=== PATIENT | female | born 1970 | race Caucasian/White ===

== ENCOUNTER 2019-09-07 04:03 | Emergency (ER) | payer BC, OTHER ==
[2019-09-07] MEDS: Pantoprazole IV* 40 MG IV ONE (04:31)
[2019-09-07] MEDS: NS 0.9% 1000 ML** 1,000 ML IV ONE (04:31)
[2019-09-07] MEDS: Ondansetron INJ* 2 MG/ML VIAL IV ONE ×2 (04:31→05:22)
[2019-09-07 04:45] LABS: ABS Lymphocytes 0.6 10^3/ul (1.0-4.8); ABS Monocytes 0.4 10^3/ul (0-0.8); Hematocrit 42 % (35-47); Hemoglobin 14.7 g/dL (12.0-16.0); Lymphocyte % 10.8 %; Mean Corpuscular HGB Conc 35 g/dL (31-36); Mean Corpuscular Hemoglobin 35 pg (27-31); Mean Corpuscular Volume 99 fL (80-97); Mean Platelet Volume 7.3 fL (7.4-10.4); Nucleated Red Blood Cells % 0.1; Platelet Count 301 10^3/uL (150-450); Red Blood Count 4.23 10^6 /uL (3.70-4.87); Red Cell Distribution Width 14 % (10-15)
--- NOTE | 2019-09-07 04:49 | ED ---
Abdominal Pain/Female - HPI Summary HPI Summary: Patient is a 48 y/o F w/ Hx of gastric bypass who presents to [facility] with complaints of abdominal pain and N/V. She states that she had flown in to [place] from [place] 09/06/19. Patient notes that she ate a [employer] DonX-1 croissant before boarding the airplane. Abdominal pain and N/V subsequently onset. Abdominal pain is characterized as constant and sharp. No radiation of pain noted. Pain has been progressively worsening since onset and is rated 10/ 10 in room. Patient notes that she has not slept secondary to pain. Vomiting is described as continuous since onset. Diaphoresis is endorsed as well. Patient states that she has not been able to keep food down but has been able to take some sips of water. She is unsure of fever. Diarrhea is denied. No similar episodes of Sx noted. Patient states that she tried to take a TUMS for her Sx but vomited this up. No abdominal surgeries with exception of gastric bypass and esophageal hernia repair noted. She is a current smoker, endorses alcohol usage, and denies substance usage. FMHx of gina gehrig's disease and esophageal cancer endorsed. Home medications and allergies are reviewed. - History of Current Complaint Chief Complaint: EDAbdPain Stated Complaint: ABD PAIN PER PT Time Seen by Provider: 09/07/19 04:31 Hx Obtained From: Patient Onset/Duration: Lasting Hours, Still Present, Worse Since Timing: Hours Severity Initially: Moderate Severity Currently: Severe Pain Intensity: 10 Pain Scale Used: 0-10 Numeric Radiates: No Character: Sharp Associated Signs and Symptoms: Positive: Diaphoresis, Decreased Appetite, Nausea , Vomiting. 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 2012 BARIATRIC SURGERY WITH REPAIR OF ESOPHAGEAL HERNIA- [facility]. 2014 RIGHT LEG ENDOLUMINAL CLOSURE, [facility] [place] Hx Anesthesia Reactions: No Infectious Disease History: No Infectious Disease History: Denies: Traveled Outside the [place] in Last 30 Days - Family History Known Family History: Positive: Other - FMHx of gina gehrig's disease and esophageal cancer - Social History Alcohol Use: Daily Alcohol Amount: 2-3 DRINKS/WEEK Substance Use Type: Reports: Marijuana Substance Use Comment - Amount & Last Used: rarely Smoking Status (MU): Heavy Every Day Tobacco Smoker Type: Cigarettes Amount Used/How Often: 1 PPD FOR 25 YRS Length of Time of Smoking/Using Tobacco: 25 YRS Have You Smoked in the Last Year: No Review of Systems Positive: Skin Diaphoresis. Negative: Fever - on vitals, temp is 97.4 F Gastrointestinal: Other - positive - decreased appetite Positive: Abdominal Pain, Vomiting, Nausea. Negative: Diarrhea All Other Systems Reviewed And Are Negative: Yes Physical Exam - Summary Physical Exam Summary: General: Well-developed, Well-nourished female. Appears in mild discomfort HEENT: Normocephalic, Atraumatic. Eyes: Conjuctiva normal, PERRL. Oropharynx: Clear, mucous membranes moist, (-) exudates. Neck: Soft, FROM, (-) lymphadenopathy, (-) thyromegaly, (-) JVD. Cardiovascular: Normal sinus rhythm, (-) murmur. Lungs: Clear to auscultation bilaterally (-) wheezes, (-) rales, (-) rhonchi. Abdomen: Moderate tenderness of the epigastric and RUQ areas. Soft, non- distended, (-) organomegaly, normal bowel sounds. Back: (-) CVA tenderness Extremities: No edema. Skin: Warm, dry, (-) rash. Neuro: Alert and oriented x3, no focal deficits. Psychiatric: Mildly anxious appearing. Triage Information Reviewed: Yes Vital Signs On Initial Exam: Initial Vitals Temp Pulse Resp BP Pulse Ox 97.4 F 69 16 173/97 100 09/07/19 04:05 09/07/19 04:05 09/07/19 04:05 09/07/19 04:05 09/07/19 04:05 Vital Signs Reviewed: Yes Procedures - Sedation Patient Received Moderate/Deep Sedation with Procedure: No Diagnostics - Vital Signs Vital Signs Temp Pulse Resp BP Pulse Ox 09/07/19 04:05 97.4 F 69 16 173/97 100 - Laboratory Result Diagrams: 09/07/19 04:28 09/07/19 04:28 Lab Statement: Any lab studies that have been ordered have been reviewed, and results considered in the medical decision making process. - CT CT ABD/PEL CT Interpretation Completed By: Radiologist Summary of CT Findings: IMPRESSION: 1. There is a region of patchy airspace consolidation noted at the right lung. base. Findings are concerning for pneumonia. Recommend dedicated chest imaging. 2. There is a ventral hernia containing mesenteric fat noted superior to the. umbilicus. THIS REPORT WAS REVIEWED BY ED PHYSICIAN. Abdominal Pain Fem Course/Dx - Course Course Of Treatment: 48-year-old female presents with abdominal pain and vomiting. Patient has epigastric and right upper quadrant tenderness. Workup demonstrates normal white count. CT scan demonstrates right lower lobe pneumonia. Patient's symptoms improved with fluids and medication. Patient started on antibiotics. Advised rest and fluids. Tylenol or ibuprofen as needed. Follow up with PCP. Follow-up sooner for any worsening symptoms. - Diagnoses Provider Diagnoses: RLL pneumonia, Epigastric pain, Vomiting Discharge ED - Sign-Out/Discharge Documenting (check all that apply): Patient Departure - discharge - Discharge Plan Condition: Stable Disposition: HOME Prescriptions: ceFUROXime 250 MG TAB [Ceftin TAB 250 MG(*)] 500 mg PO BID #14 tab Ondansetron ODT TAB* [Zofran 4 MG Odt TAB*] 4 mg PO Q6H PRN #12 tab.odt PRN Reason: Nausea Patient Education Materials: Acute Nausea and Vomiting (ED), Pneumonia (ED), Epigastric Pain (ED) Referrals: [facility] [Outside] - 3 Days Additional Instructions: PLEASE RETURN TO ED FOR ANY NEW OR WORSENING SYMPTOMS. PLEASE FOLLOW UP WITH YOUR PRIMARY CARE PHYSICIAN WITHIN THREE DAYS. - Billing Disposition and Condition Condition: STABLE Disposition: Home - Attestation Statements Document Initiated by Scribe: Yes Documenting Scribe: ALEXANDRA SHIELDS Provider For Whom Scribe is Documenting (Include Credential): SHERRI HODGE MD Scribe Attestation: I, ALEXANDRA SHIELDS, scribed for SHERRI HODGE MD on 09/08/19 at 0614. Scribe Documentation Reviewed: Yes Provider Attestation: The documentation as recorded by the scribeALEXANDRA accurately reflects the service I personally performed and the decisions made by me, SHERRI HODGE MD Status of Scribe Document: Viewed
[2019-09-07 05:03] LABS: ALT 15 U/L (7-52); AST 31 U/L (13-39); Albumin 4.2 g/dL (3.2-5.2); Albumin/Globulin Ratio 1.2 (1-3); Alkaline Phosphatase 57 U/L (34-104); Amylase 39 U/L (29-103); Anion Gap 11 mmol/L (2-11); BUN/Creatinine Ratio 15.3 (8-20); Blood Urea Nitrogen 9 mg/dL (6-24); C Reactive Protein < 1.00 mg/L (<8.01); CO2 Carbon Dioxide 25 mmol/L (22-32); Calcium 9.2 mg/dL (8.6-10.3); Chloride 97 mmol/L (101-111); EGFR African American 131.6 (>60); EGFR Non-African American 108.8 (>60); Globulin 3.5 g/dL (2-4); Glucose 144 mg/dL (70-100); Potassium 3.6 mmol/L (3.5-5.0); Sodium 133 mmol/L (135-145); Total Protein 7.7 g/dL (6.4-8.9)
[2019-09-07 05:09] LABS: HCG Pregnancy 0.68 mIU/mL
[2019-09-07] MEDS: Ketorolac INJ* 30 MG/ML 1 ML VIAL IV PUSH ONE (05:22)
[2019-09-07] MEDS: Iohexol 300* (CONTRAST) 10 ML SDV IV ONE (05:31)
[2019-09-07 05:32] LABS: Urine Appearance Clear; Urine Bilirubin Negative (Negative); Urine Blood 1+ (Negative); Urine Color Yellow; Urine Glucose 1+(50 mg/dL) (Negative); Urine Ketones 1+ (Negative); Urine Nitrite Negative (Negative); Urine Protein 1+(30 mg/dL) (Negative); Urine Specific Gravity 1.013 (1.010-1.030); Urine Urobilinogen Negative (Negative)
[2019-09-07 05:37] LABS: Urine Bacteria Absent (Absent); Urine Red Blood Cell Trace(0-2/hpf) (Absent); Urine Squamous Epithelial Cell Present (Absent); Urine White Blood Cell 1+(6-10/hpf) (Absent)
[2019-09-07] MEDS: Metoclopramide IV* 5 MG/ML 2 ML VIAL IV ONE (06:30)
[2019-09-07] MEDS: cefTRIAXone(*) 2 GM in NS 0.9% 100 ML* 100 ML IVPB ONE (06:30)
[2019-09-07 07:27] VITALS: BP 156/104
== END 2019-09-07 06:55 | disposition home or self-care (01) ==
LOC: ED 04:03
DX: J18.9 Pneumonia, unspecified organism (principal); R10.13 Epigastric pain; R11.10 Vomiting, unspecified; K43.9 Ventral hernia without obstruction or gangrene; F17.210 Nicotine dependence, cigarettes, uncomplicated; Z88.0 Allergy status to penicillin; Z88.1 Allergy status to other antibiotic agents; Z88.8 Allergy status to other drugs, medicaments and biological substances
CPT/HCPCS: 36415; 74177; 80053; 81003; 81015; 82150; 83605; 83690; 84702; 85025; 86140; 87086; 96361; 96374; 96375; 96376; 99285; J0696; J1885; J2405; J2765; Q9967